=== PATIENT | female | born 1985 | race Hispanic/Latino ===

== ENCOUNTER 2017-06-03 01:01 | Inpatient (IN) | payer OTHER ==
[2017-06-03 01:35] VITALS: BMI 31.4
[2017-06-03] MEDS ORDERED: Ondansetron HCl/PF 4 MG/2 ML Vial IVP PRN (02:09)
[2017-06-03] MEDS ORDERED: Lidocaine 1% (PF) 30 ML VIAL SC PRN (02:09)
[2017-06-03] MEDS ORDERED: Acetaminophen 500 MG TAB PO PRN (02:09)
[2017-06-03] MEDS ORDERED: LR / Pitocin 40 units/1000 ml 1,000 ML IV PRN (02:09)
[2017-06-03] MEDS ORDERED: Promethazine HCl 25 MG/ML VIAL IM PRN (02:09)
[2017-06-03] MEDS: Lactated Ringer's 1,000 ML IV SCH (02:30)
[2017-06-03 02:50] LABS: Hemoglobin 11.3 g/dL (12.0-16.0); Mean Corpuscular HGB CONC 34.1 g/dL (32.0-36.0); Mean Corpuscular Hemoglobin 30.3 pg (27.0-31.0); Mean Platelet Volume 8.3 fL (7.4-10.4); Platelet Count 213 thou/uL (130-400); RBC Distribution Width 13.6 % (11.5-14.5); Red Blood Cell (RBC) Count 3.74 mill/uL (4.20-5.40)
[2017-06-03 03:22] LABS: HBSAg Index 0.22 S/CO (0-0.99); Hep B Surf Ag Non-Reactive S/CO (NonReactive)
--- NOTE | 2017-06-03 04:14 | HP ---
OB PHYSICIAN: Emma Dan M.D. CHIEF COMPLAINT: Leakage of fluid. HISTORY OF PRESENT ILLNESS: Ms. Alexander is a 31-year-old estimated date of confinement of 07/04/2017 with known twin followed by Dr. Dan who presents tonight complaining of l eakage of fluid starting just before midnight tonight. She notes associated cramps, but denies signi ficant vaginal bleeding. She denies fever, chills, nausea or vomiting. OBSTETRICAL HISTORY: Her care has been with Dr. Dan. She is an IVF with known twins. She was seen in the office over the last 24 hours and has a vertex breech presentation. PAST MEDICAL HISTORY: Unremarkable. PAST SURGICAL HISTORY: None. SOCIAL HISTORY: Denies tobacco, alcohol, or drug use. REVIEW OF SYSTEMS: She has no nausea, vomiting, fever, chills or vaginal bleeding. PHYSICAL EXAMINATION: VITAL SIGNS: Stable. She is afebrile. LUNGS: Clear to auscultation. CARDIOVASCULAR: Regular rate and rhythm. ABDOMEN: Soft, nontender and gravid. PELVIC EXAMINATION: Speculum examination shows copious clear fluid in the vault. Cervical exam show s the cervix to be 1 cm dilated with the vertex high. heart rate tracing is stable in both twi n A and B. Good variability seen. Uterine contractions are seen every 2-5 minutes. They are mild t o palpation. ASSESSMENT: 1. Twin intrauterine at 35 and 4/7 weeks, vertex breech presentation. 2. Ruptured membranes. 3. Early labor. PLAN: I discussed the patient's clinical situation with Dr. Dan by phone. The plan at this time is to observe progression of labor as the patient is strongly desirous of a vaginal delivery. She is group B Strep negative and will not require antibiotics. At this time, she will be admitted and obs erved closely.
[2017-06-03 07:00] LABS: Syphilis Antibody Nonreactive (Nonreactive); Syphilis Antibody Index 0.02 S/CO (<1.00 Non-Reactive)
[2017-06-03] MEDS ORDERED: CEFAZOLIN/Water 2 GM/20 ML SYRINGE SLOW IVP SCH (08:45)
[2017-06-03] MEDS ORDERED: Bicitra 30 ML UDCUP PO SCH (08:45)
[2017-06-03] MEDS ORDERED: Morphine PF 1 MG/ML SYR ONE (09:23)
[2017-06-03] MEDS ORDERED: Oxytocin 10 UNITS/ML VIAL ONE (09:24)
[2017-06-03] MEDS ORDERED: ePHEDrine/0.9% NaCl/PF SYRINGE 50 mg/10 ml ONE ×2 (09:24→14:34)
[2017-06-03] MEDS ORDERED: PHENYLEPHRINE-NS 100 MCG/ML 10 ML SYRINGE ONE ×2 (09:41→14:34)
[2017-06-03] MEDS ORDERED: Azithromycin 500 MG in Sodium Chloride 0.9% 250 ML 250 ML IVPB SCH (10:15)
[2017-06-03] MEDS ORDERED: Ondansetron HCl/PF 4 MG/2 ML Vial ONE ×2 (10:22→14:34)
[2017-06-03] MEDS ORDERED: Simethicone Chewable 80 MG TAB PO PRN (10:23)
[2017-06-03] MEDS ORDERED: Bisacodyl 10 MG SUPP PR PRN (10:23)
[2017-06-03] MEDS ORDERED: diphenhydrAMINE 25 MG CAP PO PRN (10:23)
--- NOTE | 2017-06-03 10:26 | PDOC.OPDEL ---
OB Operative/Delivery Note Delivery Dr/Surgeon: Ni Assist: burgess Pre-Delivery Diagnosis: active labor Procedure/Post Delivery Dx: primary low transverse CS Anesthesia: spinal - Findings A Sex: male Weight: 4 lb 12 oz - 1 min: 8 - 5 min: 9 B Sex: female Weight: 5 lb 3 oz - 1 min: 8 - 5 min: 9 - Additional Findings/Plan Placenta delivered: manual removal findings: low transverse hysterotomy without extension Estimated blood loss: 600ml Post delivery plan: routine recovery
--- NOTE | 2017-06-03 10:27 | PDOC.EVN ---
Event Note - Event Note Event Note: CS Assist Note: Requested by Dr Dan to assist wit primary CS for twins with PPROM, atwin A ceph, Twin B beech and B>A, in a G1 Po s/p IVF. Preop DX: as above Procedure: Primary LTCS via pfannestiel, twin delivery Surgeon: Ni Assist: Hutchison Anesthesia: Spinal Zmax 500mg requested for antibiotics in addition to standard dose as per C/SOAP data Twn A and B vigorous (Twin B rotated to [facility] for delivery after A delivered) Complications none [place] on skin Please see full op note by Dr Dan
[2017-06-03] MEDS ORDERED: Misoprostol 200 MCG TAB PR SCH (10:30)
[2017-06-03] MEDS ORDERED: Eucerin (Mineral Oil/Petrolatum,White) 30 gm Jar TOP PRN (10:37)
[2017-06-03] MEDS ORDERED: Ketorolac Tromethamine 30 MG/ML VIAL IVP PRN (10:37)
[2017-06-03] MEDS ORDERED: Naloxone HCl 0.4 mg/ml Vial IVP PRN ×2 (10:37)
[2017-06-03] MEDS ORDERED: Naloxone HCl 0.4 mg/ml Vial IV PRN (10:37)
[2017-06-03 10:41] LABS: Actual Bicarbonate (HCO3a) 50.3 mEq/L (22-26); Analyzer IN Cardio OR; Base Excess (BEa) -2.5 mEq/L (0 (+/-) 2.5)
[2017-06-03] MEDS ORDERED: Communication Order-Pharmacy FS SCH (10:45)
--- NOTE | 2017-06-03 12:49 | OP ---
DATE OF PROCEDURE: 06/03/2017 PREOPERATIVE DIAGNOSES: 1. A 31-year-old female, , with dichorionic diamniotic twin gestation at 35 week 4 day. 2. Spontaneous rupture of membranes early at labor was noted to be twin A at vertex and twin B at [facility]. POSTOPERATIVE DIAGNOSES: 1. A 31-year-old female, , with dichorionic diamniotic twin gestation at 35 week 4 day. 2. Spontaneous rupture of membranes early at labor was noted to be twin A at vertex and twin B at [facility]. PROCEDURE PERFORMED: Primary low transverse section without extension. SURGEON: Emma Dan M.D. FIELD SCOUT SURGEON: Juan Jose Hutchison M.D. ANESTHESIA: Spinal block. ESTIMATED BLOOD LOSS: 600 mL. COMPLICATIONS: None. COUNTS: Correct x2. ANTIBIOTICS: Ancef 2 g and Zithromax 500 mg ed educational aide to the OR. FINDINGS: 1. Twin A male, vertex presentation, Apgars 8 and 9, weight 4 pounds 12 ounces, clear amniotic fluid noted. 2. Twin B female, breech converted to vertex for delivery, Apgars 8 and 9, weight 5 pounds 3 o unces. 3. Normal appearing fallopian tubes, uterus, and ovaries. DISPOSITION: To the recovery room, stable. DESCRIPTION OF OPERATIVE PROCEDURE: The patient previously received informed consent in regards to tanvir conte. She was taken back to the operating room where she received a spinal block without complicat ions. She was placed in the supine position, prepped and draped in usual sterile fashion and PlexiPu lses along with catheter was placed in the usual prep process. At this time, a Pfannenstiel incision was made in the lower abdomen and was carried down the fascia. Fascia was nicked in the midline. F ascial incision was extended bilaterally with use of curved [place] scissors. The rectus fascia was the n dissected superiorly and inferiorly off the rectus muscle bellies. The rectus muscle bellies were divided in the midline. The peritoneal cavity was entered. A large Ezio 0 retractor was placed. A 2 cm hysterotomy incision was made above the vesicouterine peritoneal reflection. The hysterotomy incision was extended via finger fractionation. Twin A was delivered in vertex presentation. Mouth and nares were bulb suctioned on the abdomen. The cord was doubly clamped and cut and the baby was h anded to the tobias team in attendance. Twin A placenta was doubly tagged and then twin B was delivered . Twin B was noted to be in marta breech and it was rotated to vertex presentation and the baby was then delivered vertex. The amniotic bag was ruptured and clear fluid returned. The mouth and nares of the twin B was bulb suctioned on the abdomen. The cord was doubly clamped and cut and handed to t tobias team in attendance. Usual cord blood was obtained on both placentas after they have been tagg ed separately. The placentas were then manually extracted and sent to pathology. The uterus was ext ernalized and curetted of any remaining placental fragments with a dry laparotomy sponge. The hyster otomy incision was inspected. No extensions were noted. The hysterotomy incision was closed with ru nning locking #1 Monocryl suture with good hemostasis confirmed. The uterus returned back into the a bdomen. Pelvis was irrigated and suctioned. Again, hemostasis along the hysterotomy line was confir med. The Ezio O retractor was removed. Again, the hysterotomy incision was inspected and hemostas is was confirmed. The rectus muscle bellies were then approximated in the midline with 2-0 chromic a nd then the rectus muscle bellies were inspected and noted to be hemostatic prior to fascial closure. The fascia was closed with 0 PDS suture x2 in running continuous fashion. Subcutaneous tissue was irrigated and noted to be hemostatic prior to skin approximation with iván. The surgery was termi nated and no anesthetic or surgical complications occurred.
[2017-06-03] MEDS ORDERED: Ibuprofen 800 MG TAB PO SCH (14:00)
[2017-06-03] MEDS: Ferrous Sulfate 325 MG TAB PO SCH (22:00)
[2017-06-04] MEDS: Lactated Ringer's 1,000 ML IV SCH (01:26)
[2017-06-04] MEDS: HYDROcodone/Acetaminophen 5/325 mg Tablet PO PRN ×4 (02:31→22:20)
[2017-06-04 06:16] LABS: Hemoglobin 8.7 g/dL (12.0-16.0); Mean Corpuscular HGB CONC 34.4 g/dL (32.0-36.0); Mean Corpuscular Hemoglobin 30.8 pg (27.0-31.0); Mean Corpuscular Volume 89.4 fl (81.0-99.0); Mean Platelet Volume 7.9 fL (7.4-10.4); Platelet Count 163 thou/uL (130-400); RBC Distribution Width 13.8 % (11.5-14.5); Red Blood Cell (RBC) Count 2.81 mill/uL (4.20-5.40); White Blood Cell (WBC) Count 10.3 thou/uL (4.8-10.8)
--- NOTE | 2017-06-04 06:45 | PDOC.PP ---
Post Progress Note Post Day #: 1 Subjective: Doing well, jose po PO intake tolerated: yes Flatus: yes Ambulation: yes Vital Signs (12 hours) Temp Pulse Resp BP 06/04/17 06:03 98.5 F 06/04/17 04:23 98.9 F 81 16 110/61 06/04/17 00:05 99.0 F 82 16 06/03/17 22:30 99.0 F 06/03/17 22:01 99.3 F 06/03/17 21:10 99.6 F 06/03/17 20:01 99.4 F 88 18 107/61 06/03/17 20:00 99.3 F 88 16 Weight Weight 161 lb - Physical Examination General: NAD Cardiovascular: no m/r/g Respiratory: clear to auscultation bilaterally Abdominal: + bowel sounds Extremities: negative homans (B) Skin: CS incision dry & intact (iván in use) Result Diagrams: 06/04/17 05:56 Additional Labs: Post Labs Blood Type A POSITIVE 06/03/17 02:34 Hep Bs Antigen Non-Reactive S/CO (NonReactive) 06/03/17 02:34 (1) Delivered by section Code(s): O82 - ENCOUNTER FOR DELIVERY WITHOUT INDICATION Status: Acute (2) , twins, delivered Code(s): O30.009 - TWIN , UNSP NUM PLCNTA & AMNIO SACS, UNSP TRIMESTER Status: Acute - Assessment/Plan day 1 s/p primary LTCS. TMax was 99.3 around midnight this AM..not on antibiotics. We will follow for now. She did recieve zmax along with standard antibiotics periop. Follow temps for now. HCT was 25.
[2017-06-04] MEDS ORDERED: Adacel (T-DAP) 0.5 ML VIAL IM ONE (09:00)
[2017-06-04] MEDS: Prenatal Vitamin 1 TAB PO SCH (09:13)
[2017-06-04] MEDS: Ferrous Sulfate 325 MG TAB PO SCH ×2 (10:28→22:19)
[2017-06-04] MEDS: Ibuprofen 800 MG TAB PO SCH ×2 (13:53→22:19)
[2017-06-05] MEDS: Ibuprofen 800 MG TAB PO SCH ×3 (05:43→20:42)
[2017-06-05] MEDS: HYDROcodone/Acetaminophen 5/325 mg Tablet PO PRN (05:43)
--- NOTE | 2017-06-05 07:07 | PDOC.PP ---
Post Progress Note Post Day #: 2 PO intake tolerated: yes Flatus: yes Ambulation: yes Vital Signs (12 hours) Temp Pulse Resp BP BP 06/05/17 04:40 98.7 F 84 16 116/81 06/05/17 00:36 98.8 F 86 16 112/76 06/04/17 20:15 98.9 F 89 16 110/70 Weight Weight 161 lb - Physical Examination General: NAD Cardiovascular: no m/r/g, RRR Respiratory: clear to auscultation bilaterally, non-labored breathing Abdominal: + bowel sounds, lochia, no distention, appropriately TTP Extremities: negative homans (B) Skin: CS incision dry & intact Neurological: no gross focal deficits Psychiatric: A&Ox3, normal affect Result Diagrams: 06/04/17 05:56 Additional Labs: Post Labs Blood Type A POSITIVE 06/03/17 02:34 Hep Bs Antigen Non-Reactive S/CO (NonReactive) 06/03/17 02:34 (1) Delivered by section Code(s): O82 - ENCOUNTER FOR DELIVERY WITHOUT INDICATION Status: Acute (2) , twins, delivered Code(s): O30.009 - TWIN , UNSP NUM PLCNTA & AMNIO SACS, UNSP TRIMESTER Status: Acute - Assessment/Plan routine post cs care. anticipate 2/5 or 6 dc home.
[2017-06-05] MEDS: Prenatal Vitamin 1 TAB PO SCH (09:25)
[2017-06-05] MEDS: Ferrous Sulfate 325 MG TAB PO SCH ×2 (09:26→20:42)
[2017-06-06] MEDS: Ibuprofen 800 MG TAB PO SCH (04:48)
--- NOTE | 2017-06-06 07:47 | PDOC.PP ---
Post Progress Note Post Day #: 3 PO intake tolerated: yes Flatus: yes Ambulation: yes Vital Signs (12 hours) Temp Pulse Resp BP 06/05/17 20:00 98.1 F 100 16 124/76 Weight Weight 161 lb - Physical Examination General: NAD Cardiovascular: no m/r/g, RRR Respiratory: clear to auscultation bilaterally, non-labored breathing Abdominal: + bowel sounds, lochia, no distention, appropriately TTP Result Diagrams: 06/04/17 05:56 Additional Labs: Post Labs Blood Type A POSITIVE 06/03/17 02:34 Hep Bs Antigen Non-Reactive S/CO (NonReactive) 06/03/17 02:34 - Assessment/Plan doing well post day 3 bed in breakfast today
[2017-06-06] MEDS: Prenatal Vitamin 1 TAB PO SCH (07:52)
[2017-06-06] MEDS: Ferrous Sulfate 325 MG TAB PO SCH (07:52)
[2017-06-06 10:25] VITALS: BP 103/71; TEMP 97.9
== END 2017-06-06 12:45 | disposition home or self-care (01) | DRG 765 ==
LOC: L&D/OP 01:01 → L&D 02:05 → 3SW 13:03
PROVIDERS: ADMIT Obstetrics & Gynecology; ATTEND Obstetrics & Gynecology
PROC: 10D00Z1 Extraction of Products of Conception, Low, Open Approach (ICD-10-PCS; principal; 2017-06-03)
DX: O32.1XX1 Maternal care for breech presentation, fetus 1 (principal); O30.043 Twin pregnancy, dichorionic/diamniotic, third trimester; Z37.2 Twins, both liveborn; O42.013 Preterm premature rupture of membranes, onset of labor within 24 hours of rupture, third trimester; Z3A.35 35 weeks gestation of pregnancy
CPT/HCPCS: 36415; 51702; 82805; 85027; 86780; 86850; 86900; 86901; 87340; 88307; 99285; J0456; J1885; J2274; J2405; J2590; J7050

== ENCOUNTER 2022-09-07 10:32 | Outpatient (CLI) | payer BC | END 2022-09-07 10:33 | disposition home or self-care (01) | LOC: BICRAD 10:32 → RAD 10:33 | PROVIDERS: ATTEND Internal Medicine | DX: M25.552 Pain in left hip (principal) ==